=== PATIENT | male | born 1945 | race Caucasian/White ===

== ENCOUNTER 2019-07-28 11:57 | Outpatient (CLI) | payer OTHER ==
[2019-07-28] MEDS ORDERED: FLUMAZENIL 0.1 MG/1 ML, 5ML ONE (12:22)
[2019-07-28] MEDS ORDERED: FENTANYL PF 100 MCG/2ML ONE ×2 (12:22)
[2019-07-28] MEDS ORDERED: MIDAZOLAM 1 MG/ML, 5ML ONE (12:22)
[2019-07-28] MEDS ORDERED: NALOXONE 1 MG/ML, 2ML ONE (12:23)
== END 2019-07-28 23:59 | disposition home or self-care (01) ==
LOC: RAD 11:57
DX: M54.12 Radiculopathy, cervical region (principal); Z53.9 Procedure and treatment not carried out, unspecified reason
CPT/HCPCS: 72141; 99156; 99157; J2250; J3010; J2310